=== PATIENT | female | born 1975 | race African-American/Black ===

== ENCOUNTER → 2017-12-04 | Outpatient (CLI) | payer BC, MEDICARE | END | disposition home or self-care (01) | LOC: MAMMO 10:42 | DX: Z12.31 Encounter for screening mammogram for malignant neoplasm of breast (principal) | CPT/HCPCS: 77067 ==

== ENCOUNTER → 2018-12-05 | Outpatient (CLI) | payer MEDICARE, BC ==
--- NOTE | 2018-12-07 16:58 | RAD ---
DATE: 12/07/2018 EXAM: MAMMO TAZ SCREENING BILATERAL HISTORY: Annual screening COMPARISON: 11/25/2016 and 12/04/2017 mammographic exams This study was interpreted with the benefit of Computerized Aided Detection (CAD). Breast Density: HETERO The breast parenchyma is heterogenously dense, which could reduce sensitivity of mammography. Breast parenchyma level C. FINDINGS: Asymmetry at the posterior inner right breast is present 4.7 cm deep from the nipple. It appears to be at the lower breast on tomosynthesis imaging. It is not identified on MLO images with certainty. No suspicious calcification grouping. No distortion. IMPRESSION: Indeterminate asymmetry is new involving the right inner lower breast. Spot compression imaging of the right inner breast is recommended. Medial lateral view of the right breast recommended with tomosynthesis. Ultrasound may be needed. Annual left breast screening evaluation recommended. BI-RADS CATEGORY: 0 INCOMPLETE: NEEDS ADDITIONAL IMAGING EVALUATION AND/OR PRIOR MAMMOGRAMS FOR COMPARISON. RECOMMENDED FOLLOW-UP: ADD ADDITIONAL IMAGING PQRS compliance statement: Patient information was entered into a reminder system with a target due date of now for the next mammogram. Mammography is a sensitive method for finding small breast cancers, but it does not detect them all and is not a substitute for careful clinical examination. A negative mammogram does not negate a clinically suspicious finding and should not result in delay in biopsying a clinically suspicious abnormality. "Our facility is accredited by the [employer] Mammography [employer]."
== END | disposition home or self-care (01) ==
LOC: MAMMO 08:50
PROVIDERS: ATTEND Internal Medicine
DX: Z12.31 Encounter for screening mammogram for malignant neoplasm of breast (principal)
CPT/HCPCS: 77063; 77067

== ENCOUNTER → 2018-12-09 | Outpatient (CLI) | payer BC ==
--- NOTE | 2018-12-09 10:39 | RAD ---
EXAM: MAMMO TAZ DIAG RT, BREAST RIGHT HISTORY: Call back for asymmetry right breast COMPARISON: 12/05/2018 FINDINGS: Breast Density: HETERO The breast parenchyma Is heterogeneouslyy dense, which could reduce sensitivity of mammography. Breast parenchyma level C. Spot compression 3-D views of the right breast in cc view demonstrates persistence of asymmetry in the right posterior breast. Ultrasound of this region demonstrates a 7 mm probable lymph node at 12:00 position 5.5 cm from the nipple. IMPRESSION: Probably benign findings. Recommend right breast mammogram in 6 months BI-RADS CATEGORY: 3 PROBABLE BENIGN-SHORT TERM F/U RECOMMENDED FOLLOW-UP: 6M 6 MONTH FOLLOW-UP PQRS compliance statement: Patient information was entered into a reminder system with a target due date 06/08/2019 for the next mammogram. Mammography is a sensitive method for finding small breast cancers, but it does not detect them all and is not a substitute for careful clinical examination. A negative mammogram does not negate a clinically suspicious finding and should not result in delay in biopsying a clinically suspicious abnormality. "Our facility is accredited by the [employer] Mammography Program."
== END | disposition home or self-care (01) ==
LOC: MAMMO 09:40
PROVIDERS: ATTEND Internal Medicine
DX: R92.8 Other abnormal and inconclusive findings on diagnostic imaging of breast (principal)
CPT/HCPCS: 76641; 77065; G0279; 77061

== ENCOUNTER → 2019-06-09 | Outpatient (CLI) | payer BC, MEDICARE ==
--- NOTE | 2019-06-09 15:47 | RAD ---
DATE: 06/09/2019 EXAM: DIGITAL DIAGNOSTIC RT, BREAST RIGHT HISTORY: Abnormal mammogram COMPARISON: Screening mammographic exams 10/31/2015 and 12/04/2017. Bilateral diagnostic mammographic exam 11/25/2016. Right breast ultrasound 12/09/2018. This study was interpreted with the benefit of Computerized Aided Detection (CAD). Breast Density: DENSE The breast parenchyma is dense, which could reduce the sensitivity of mammography. Breast parenchyma level density D. FINDINGS: Benign calcifications are present. No masses or distortion. No suspicious asymmetry on spot compression imaging of the right inner lower breast. Limited ultrasound examination of the right breast was performed at the 12:00 region. There is a 0.7 cm x 0.3 cm x 0.6 cm hypoechoic structure which is minimally decreased in the interval. It is located 5.5 cm from the nipple. This may represent a region of heterogeneously hypoechoic breast parenchyma. No flow or other suspicious finding. IMPRESSION: Stable BI-RADS CATEGORY: 2 BENIGN FINDING(S) RECOMMENDED FOLLOW-UP: 12M 12 MONTH FOLLOW-UP PQRS compliance statement: Patient information was entered into a reminder system with a target due date in one year for the next mammogram. Mammography is a sensitive method for finding small breast cancers, but it does not detect them all and is not a substitute for careful clinical examination. A negative mammogram does not negate a clinically suspicious finding and should not result in delay in biopsying a clinically suspicious abnormality. "Our facility is accredited by the [employer] Mammography [employer]."
== END | disposition home or self-care (01) ==
LOC: MAMMO 10:14
PROVIDERS: ATTEND Internal Medicine
DX: R92.1 Mammographic calcification found on diagnostic imaging of breast (principal)
CPT/HCPCS: 76641; 77065

== ENCOUNTER → 2020-07-08 | Outpatient (CLI) | payer BC, MEDICARE ==
--- NOTE | 2020-07-11 12:09 | RAD ---
DATE: 07/08/2020 9:27 AM EXAM: MAMMO TAZ SCREENING BILATERAL HISTORY: Screening COMPARISON: 12/05/2018, 12/04/2017 Bilateral CC and MLO views of the breasts were performed. Bilateral breast tomosynthesis was performed in CC and MLO projections. This study was interpreted with the benefit of Computerized Aided Detection (CAD). FINDINGS: Breast Density: DENSE The breast Parenchyma is dense, which could reduce the sensitivity of mammography. Breast parenchyma level density D. Diffuse scattered calcifications are present bilaterally. No suspicious masses, microcalcifications or architectural distortion is present to suggest malignancy in either breast. The visualized axillae are unremarkable. IMPRESSION: No mammographic evidence of malignancy. BI-RADS CATEGORY: 2 BENIGN FINDING(S) RECOMMENDED FOLLOW-UP: 12M 12 MONTH FOLLOW-UP Annual screening mammography is recommended, unless clinically indicated sooner based on symptoms or change in physical exam. PQRS compliance statement: Patient information was entered into a reminder system with a target due date for the next mammogram. Mammography is a sensitive method for finding small breast cancers, but it does not detect them all and is not a substitute for careful clinical examination. A negative mammogram does not negate a clinically suspicious finding and should not result in delay in biopsying a clinically suspicious abnormality. "Our facility is accredited by the [employer] Mammography Program."
== END | disposition home or self-care (01) ==
LOC: MAMMO 09:21
PROVIDERS: ATTEND Internal Medicine
DX: Z12.31 Encounter for screening mammogram for malignant neoplasm of breast (principal); N64.89 Other specified disorders of breast
CPT/HCPCS: 77063; 77067

== ENCOUNTER → 2021-07-20 | Outpatient (CLI) | payer BC ==
--- NOTE | 2021-07-20 09:01 | KCIC ---
EXAM: DUAL ENERGY X-RAY ABSORPTIOMETRY (DEXA). HISTORY: Estrogen deficiency. Osteoporosis screening. FINDINGS: The lowest measured T-score is -0.5 in the left hip, based on a bone mineral density of 0.8 83 g/cm^2. Refer to the worksheets for full detail. No comparison examinations are available. IMPRESSION: 1. Normal. Bone mineral density yields a T-score of -1.0 or greater. Fracture risk is low. 2. FRAX report: Not calculated. METHODOLOGY: Dual energy x-ray absorptiometry was performed to measure bone mineral density. The foll owing analysis is based on the 2019 Official Positions of the International Society for Clinical Dens itometry: Measurements of the hips and the average of L1-L4 are preferred. When the spine and/or hip cannot be feasibly measured or interpreted, or in the setting of hyperparathyroidism, distal radial bone minera l density may be measured. The lumbar spine T-score is based on the average bone mineral density of L1-L4. In the setting of art ifact or anatomic abnormality, some lumbar levels may be excluded, and the remaining levels used for calculation. A single lumbar level is not used for diagnosis, and if only a single level is available for assessment, another anatomic site will be used to assign a diagnosis. The hip T-score is based on the bone mineral density measurement of the femoral neck or total proxima l femur of either side, whichever is lowest. Bilateral mean values are not used for diagnosis. The forearm T-score is derived from 33% of the distal radius of the nondominant forearm. Electronically signed by: Shelia Wilkins MD (07/20/2021 8:59 AM) [id number]
--- NOTE | 2021-07-20 12:12 | KCIC ---
Bilateral digital screening mammograms: Reason for examination: Routine screening. Comparison is made to previous studies dated back to 10/31/2015. Interpretation was made with the benefit of CAD. The skin and nipples show no abnormalities. No abnormal axillary lymph nodes are seen. The breast par enchyma is extremely dense. (Breast density: Category D.) There appear to be nodular densities refurbish technician ior and slightly inferior to the nipple line on the right oblique view 5.5 cm from the nipple and nuno suring 7.6 mm consolidation and anterior medially in the left cc view approximately 3 cm from nipple measuring approximately 1 cm in size. Further evaluation with ultrasound is recommended. There are ot her dominant masses, suspicious calcifications or architectural distortion. Impression: Dense breasts with nodular densities bilaterally. Recommend further evaluation with bilateral breast ultrasound. Your patient's mammogram demonstrates that she has dense breast tissue (breast density category C or D), which could hide abnormalities, and if she has other risk factors for breast cancer that have bee n identified, she might benefit from supplemental screening tests that may be suggested by you as her ordering physician. Dense breast tissue, in and of itself, is a relatively common condition. Therefo re, this information is not provided to cause undue concern, but rather to raise your awareness and t o promote discussion with your patient regarding the presence of other risk factors, in addition to d ense breast tissue. Your patient's mammography results will be sent to her. BI-RAD Category 0: Incomplete. Needs additional imaging evaluation. "Our facility is accredited by the [employer] Mammography Program." This patient's information has been entered into a reminder system for the patient to be notified wit h the results of her examination and a target date for the next mammogram. Electronically signed by: Bree Forrester MD (07/20/2021 12:10 PM) [id number]
== END ==
LOC: KCIC MAMMO 07:57
PROVIDERS: ATTEND Internal Medicine
DX: Z12.31 Encounter for screening mammogram for malignant neoplasm of breast (principal); E28.39 Other primary ovarian failure
CPT/HCPCS: 77067; 77080

== ENCOUNTER → 2021-08-28 | Outpatient (CLI) | payer BC ==
--- NOTE | 2021-08-28 10:16 | KCIC ---
Bilateral breast ultrasound: Reason for examination: History densities on screening mammogram. Comparison is made to mammographic exam dated 07/20/2021. Ultrasound examination was performed bilaterally of the breasts and axilla. In the right breast, there is a small 2.7 mm hypoechoic fibrocystic type lesion at the 4:00 position 4.5 cm from the nipple. This probably corresponds to the area of mammographic concern. There are no o ther cystic or solid lesion seen. No abnormal appearing lymph nodes are seen in the right axilla. In the left breast, there is a fibrocystic lesion at the 11:00 position 3 cm from the nipple measurin g approximately 7 mm in greatest dimension. This would correspond with the area of mammographic siddharth rn. No other cystic or solid lesions are seen. No abnormal appearing lymph nodes are seen in the left axilla. IMPRESSION: Small 2.7 mm fibrocystic lesion at the 4:00 position of the right breast. Small 7 mm fibrocystic lesion at the 11:00 position of the left breast. Recommend 6 month follow-up with mammograms and ultrasounds. BI-RADS Category 3: Probably Benign. "Our facility is accredited by the [employer] Mammography Program." This patient's information has been entered into a reminder system for the patient to be notified wit h the results of her examination and a target date for the next mammogram. Electronically signed by: Bree Forrester MD (08/28/2021 10:13 AM) [email or web address]
== END ==
LOC: KCIC MAMMO 08:38
PROVIDERS: ATTEND Internal Medicine
DX: R92.2 Inconclusive mammogram (principal); N64.89 Other specified disorders of breast
CPT/HCPCS: 76641